=== PATIENT | female | born 1950 | race Caucasian/White ===

== ENCOUNTER 2016-11-14 12:23 | Emergency (ER) | payer SELFPAY ==
--- NOTE | 2016-11-14 14:09 | RAD ---
INDICATION: Cough since November 05. COMPARISON: November 26, 2011 TECHNIQUE: Dual energy PA and routine lateral views of the chest were obtained. REPORT: Early rarefaction of upper lung zone interstitial markings concerning for emphysema. No focal pulmonary lesion, alveolar consolidation, pleural effusion, pneumothorax. The heart, pulmonary vasculature, and mediastinal contours are unremarkable. Unremarkable osseous structures for age. IMPRESSION: Suggestion of early emphysema. Correlate with clinical assessment. No acute cardiopulmonary process evident.
[2016-11-14 14:47] VITALS: BP 136/67
--- NOTE | 2016-11-23 15:38 | UC ---
Chintan Leyva SooYoung, scribed for Autumn Roberson DO on 11/14/16 at 1239 . Respiratory Complaint HPI - HPI Summary HPI Summary: A 66 y/o F presents to [facility] with c/o productive cough onset approx 9 days ago. Aggravating factors: deep breaths. Associated sx: discrete mid-sternal CP, nasal drip, congestion, sore throat which resolved, malaise, dizziness (1-2 episodes per day), diaphoresis, palpitations. Denies: n/v/d, pain in neck, jaw and arm. Pt cleaned the chicken coop 9 days ago. Pt has tried a variety of homeopathic remedies (cinnamon and cloves, lemon and honey) with unsatisfying results. She took cold medicine with no relief, she believes the palpitations were related to the cold medicine. PMHx: arrhythmia. Pt has been around family members with recent colds. - History of Current Complaint Chief Complaint: UCRespiratory Stated Complaint: RESP ISSUE Time Seen by Provider: 11/14/16 12:26 Hx Obtained From: Patient Onset/Duration: Lasting Days, Still Present Timing: Constant Severity Initially: Moderate Severity Currently: Moderate Pain Intensity: 0 Pain Scale Used: 0-10 Numeric Character: Cough: Productive Aggravating Factors: Deep Breaths Associated Signs And Symptoms: Positive: Dizziness, Nasal Congestion - Allergies/Home Medications Allergies/Adverse Reactions: Allergies Allergy/AdvReac Type Severity Reaction Status Date / Time Neomycin Allergy Blisters Verified 11/14/16 12:30 PMH/Surg Hx/FS Hx/Imm Hx Previously Healthy: Yes Endocrine History Of: Denies: Diabetes, Thyroid Disease Cardiovascular History Of: Denies: Cardiac Disorders, Hypertension Respiratory History Of: Denies: COPD, Asthma GI/ History Of: Denies: Ulcer - Surgical History Surgical History: None Surgery Procedure, Year, and Place: hemorrhoidectomy - Family History Known Family History: Positive: Blood Disorder - clotting disorder Negative: Cardiac Disease, Hypertension, Diabetes - Social History Occupation: Unemployed - OTHER Lives: With Family Alcohol Use: None Substance Use Type: None Smoking Status (MU): Never Smoked Tobacco Review of Systems Constitutional: Negative Skin: Negative Eyes: Negative ENT: Sore Throat, Nasal Discharge, Other - pos: congestion Respiratory: Negative Cardiovascular: Palpitations, Chest Pain Gastrointestinal: Negative Genitourinary: Negative Motor: Negative Neurovascular: Negative Musculoskeletal: Other: - pos: malaise Neurological: Other - pos: dizziness Psychological: Negative All Other Systems Reviewed And Are Negative: Yes Physical Exam Triage Information Reviewed: Yes Appearance: Well-Appearing, No Pain Distress, Well-Nourished Vital Signs: Initial Vital Signs Temp 98.7 F 11/14/16 12:30 Pulse 84 11/14/16 12:30 Resp 16 11/14/16 12:30 BP 113/76 11/14/16 12:30 Pulse Ox 98 11/14/16 12:30 Vital Signs Reviewed: Yes Eyes: Positive: Conjunctiva Clear. Negative: Discharge ENT: Positive: Hearing grossly normal. Negative: Muffled/hoarse voice Neck exam: Normal Neck: Positive: Supple Respiratory: Positive: Lungs clear, Normal breath sounds, No respiratory distress, No accessory muscle use, Expiration - prolonged expiration Cardiovascular: Positive: RRR, No Murmur Musculoskeletal Exam: Normal Neurological: Positive: Alert, Muscle Tone Normal Psychological: Positive: Age Appropriate Behavior Skin Exam: Normal, Other - pos: warm, dry, nml color UC Diagnostic Evaluation - Laboratory O2 Sat by Pulse Oximetry: 98 - Radiology Xray Interpretation: Positive (See Comments) - CXR IMPRESSION: Suggestion of early emphysema. Correlate with clinical assessment. No acute cardiopulmonary process evident. Radiology Interpretation Completed By: Radiologist Respiratory Course/Dx - Course Course Of Treatment: Normal BP reading and no follow-up instructions required. - Differential Dx/Diagnosis Differential Diagnosis/HQI/PQRI: Bronchitis, Lower Resp Infection, Pulmonary Embolism, Sinusitis, Other - cva Provider Diagnoses: near syncope, dizzy, sinusitis, ama Discharge - Discharge Plan Condition: Stable Disposition: AGAINST MEDICAL ADVICE Prescriptions: Amoxicillin/Clavulanate TAB* [Augmentin TAB 875*] 875 mg PO BID #20 tab Benzonatate CAP* [Tessalon 100 MG CAP*] 100 mg PO TID #30 cap Fluconazole [Diflucan] 150 mg PO ONCE #2 tab guaiFENesin ER TAB [Mucinex*] 600 mg PO BID PRN #1 box PRN Reason: Cough predniSONE TAB* [Deltasone TAB*] 40 mg PO DAILY #10 tab Patient Education Materials: Acute Bronchitis (ED), Near Syncope (ED), Lightheadedness (ED) Referrals: [facility] [place] [facility] [Outside] No Primary Care Phys,NOPCP [Primary Care Provider] - Additional Instructions: YOU ARE LEAVING AGAINST MEDICAL ADVISE. WE HAVE RECOMMENDED TRANSFER TO THE ED FOR THOROUGH EVALUATION OF YOUR CHEST DISCOMFORT, DIZZINESS AND NEAR SYNCOPE. YOU HAVE REFUSED. YOUR RISKS INCLUDE DAMAGE TO THE HEART, CARDIAC ARRHYTHMIA, CARDIAC ARREST AND . IF YOU CHANGE YOUR MIND, YOU CAN STILL GO TO THE ED AT ANY TIME. TRY USING THE NETTI POT IN THE MORNINGS DISCUSSED. YOU MUST ALWAYS USE CLEAN WATER. CORTICOSTEROID MEDICATION: You have been given a medicine of the cortisone class. This medication is used to control inflammation or allergy. It is usually only given for a short period of time, until the acute process subsides. There are usually no side effects from short-term use of cortisone-like medications. Some persons feel an increased sense of well-being and are not sleepy at bedtime. Long-term use of cortisone medications is best avoided, unless required for a severe condition. If your condition does not remit, or relapses after the course of corticosteroid medication, you should consult your physician. Contact the physician if you develop lightheadedness, black or tarry stools , swelling of the legs, or significant rapid change in weight. EXPECTORANT MEDICATION: An expectorant medicine has been prescribed. This type of drug makes mucous thinner, helping the sinuses, nose, and bronchial tubes to remain free of pus and mucous. Expectorants make a cough less severe and more comfortable, and help infected sinuses drain. In general, antihistamines defeat the purpose of the expectorant by making mucous thicker. They should be avoided unless specifically recommended by your physician. TESSALON PERLES: You have received a prescription for Tessalon Perles (benzonatate). This is a non-narcotic medicine for relief of cough. It usually works in about 15- 20 minutes and lasts around four hours. Tessalon Perles should be swallowed. They should not be chewed or dissolved in the mouth (this can produce temporary numbing of the mouth and choking can occur). If you develop any adverse effects such as wheezing, shortness of breath, hives, rash, itching, or lightheadedness, please return at once. AUGMENTIN: Augmentin is a mixture of amoxicillin and clavulanate. Amoxicillin is a member of the penicillin family. It covers the germs likely to cause ear, bronchial, and urinary infections better than plain penicillin. The addition of clavulanate allows it to cover staph infections of the skin, as well as resistant cases of ear and sinus infections. Your physician has chosen Augmentin for you because of the special nature of your situation. Augmentin is best taken with meals. Nausea after taking the medication is rare, but can occur. Diarrhea can occur, particularly in small children. Vaginal yeast infections, and oral thrush in infants are also common. Contact your physician if these problems occur. Allergy to penicillins is common. If you have had an allergic reaction to any drug of the penicillin family, you should never take any other penicillin. Notify your doctor at once if you develop hives, shortness of breath, swelling, or faintness. ANY TIME YOU TAKE AN ANTIBIOTIC, IT IS IMPORTANT TO REPLENISH THE BODY'S BALANCE OF "GOOD" BACTERIA BY EATING HIGH QUALITY CULTURED FOOD SUCH YOGURT, SAURKRAUT OR EDISON CHI AND/OR TAKING A PROBIOTIC SUPPLEMENT. FLUCONAZOLE: Fluconazole (Diflucan) is an antifungal drug. It is useful for serious fungal infections, but is also excellent for oral or vaginal yeast infections. Diflucan interacts with some medicines. This is a concern if you are taking anticoagulants (such as Coumadin), phenytoin (Dilantin), cyclosporin, or oral hypoglycemics (such as tolbutamide, Orinase, glipizide, Glucotrol, glyburide, DiaBeta, Glynase, and Micronase). Be sure the doctor knows if you are taking one of these medicines. We don't know how Diflucan affects . If you are planning to become , discuss this with your doctor. Diflucan has few side effects. Minor side effects may include nausea, headache, or diarrhea. Call the doctor if you develop a skin rash, shortness of breath, or other new symptoms. FOLLOW-UP CARE: You should establish with a private physician for follow-up care. If you are unable to get a timely appointment, or if you are worsening, call us or return for re-evaluation. An additional resource available to assist in finding the appropriate physician for your health care needs is the Physician Referral Center. You may contact them by calling [phone]. The documentation as recorded by the scribe, VanDeMark,SooYoung accurately reflects the service I personally performed and the decisions made by me, Autumn Roberson DO.
== END 2016-11-14 15:00 | disposition left against medical advice (07) ==
LOC: UCEAST 12:23
DX: R55 Syncope and collapse (principal); R42 Dizziness and giddiness; J32.9 Chronic sinusitis, unspecified; Z88.1 Allergy status to other antibiotic agents
CPT/HCPCS: 71020; 99212; G0463

== ENCOUNTER 2016-12-11 11:39 | Emergency (ER) | payer SELFPAY ==
[2016-12-11] MEDS ORDERED: Aspirin Low Dose CHEW TAB* 81 MG PO ONE (12:32)
[2016-12-11 13:11] LABS: Hematocrit 39 % (35-47); Hemoglobin 13.1 g/dl (12.0-16.0); Mean Corpuscular HGB Conc 34 g/dl (31-36); Mean Corpuscular Hemoglobin 30 pg (27-31); Mean Corpuscular Volume 89 fL (80-97); Mean Platelet Volume 8 um3 (7.4-10.4); Red Blood Count 4.32 10^6/ul (4.0-5.4); Red Cell Distribution Width 14 % (10.5-15); White Blood Count 6.2 10^3/ul (3.5-10.8)
[2016-12-11 13:28] LABS: Albumin 4.2 g/dL (3.2-5.2); BUN/Creatinine Ratio 17.9 (8-20); Calcium 9.2 mg/dL (8.6-10.3); EGFR African American 112.6 (>60); EGFR Non-African American 87.5 (>60); Globulin 2.6 g/dL (2-4); Magnesium 2.1 mg/dL (1.9-2.7); Potassium 3.8 mmol/L (3.5-5.0); Total Bilirubin 0.5 mg/dL (0.2-1.0); Total Protein 6.8 g/dL (6.4-8.9)
[2016-12-11 13:31] LABS: Troponin I 0.01 ng/mL (<0.04)
--- NOTE | 2016-12-11 13:37 | RAD ---
INDICATION: Chest pain. COMPARISON: Comparison is made with prior chest x-ray study from November 14, 2016. TECHNIQUE: A portable view of the chest was obtained. FINDINGS: Cardiac and mediastinal contours appear to be within normal limits. The lungs are clear. No pleural effusion is seen. IMPRESSION: NO EVIDENCE FOR ACUTE DISEASE.
[2016-12-11 13:54] LABS: T4 6.84 mcg/mL (6.09-12.23)
[2016-12-11 13:55] LABS: TSH (Thyroid Stimulating Horm) 3.16 mcIU/mL (0.34-5.60)
[2016-12-11 15:53] LABS: Urine Bilirubin Negative (Negative); Urine Glucose Negative (Negative); Urine Nitrite Negative (Negative)
[2016-12-11 16:19] VITALS: BP 114/66
[2016-12-11] MEDS ORDERED: Albuterol HFA INHALER* 8 gm MDI INH PRN (16:31)
--- NOTE | 2016-12-12 17:59 | ED ---
Gail Leyva Edward, scribed for Jermain Snider MD on 12/11/16 at 1633 . HPI Chest Pain - HPI Summary HPI Summary: 66 y/o female presents to ED with CP characterized as chest tightness. Patient experienced a cough and chest tightness yesterday while digging in her backyard. CP initially started last month after patient cleaned her chicken coop , which brought on coughing and a bad cold that "stayed in her chest." She was treated at [facility] and symptoms resolved. Associated sx: "hot flashes", lightheadedness, and constipation. Denies SOB, N/V, and diarrhea. - History of Current Complaint Chief Complaint: EDChestPainROMI Time Seen by Provider: 12/11/16 12:31 Hx Obtained From: Patient Onset/Duration: Started Days Ago - Chest pain and cough got worse yesterday. Had similar episode last month but was resolved, Still Present Timing: Constant Initial Severity: Mild Current Severity: Mild Pain Intensity: 3 Pain Scale Used: 0-10 Numeric Character: Tightness, Other: - Can "feel heart for the first time" Associated Signs and Symptoms: Positive: Chest Pain - Chest tightness, Cough, Other: - No diarrhea. Positive constipation. Negative: Shortness of Breath, Nausea, Vomiting - Allergy/Home Medications Allergies/Adverse Reactions: Allergies Allergy/AdvReac Type Severity Reaction Status Date / Time Neomycin Allergy Blisters Verified 11/14/16 12:30 PMH/Surg Hx/FS Hx/Imm Hx Previously Healthy: No Endocrine/Hematology History: Denies: Hx Diabetes, Hx Thyroid Disease Cardiovascular History: Denies: Hx Hypertension Respiratory History: Denies: Hx Asthma, Hx Chronic Obstructive Pulmonary Disease (COPD) GI History: Denies: Hx Ulcer - Surgical History Surgery Procedure, Year, and Place: hemorrhoidectomy Infectious Disease History: No Infectious Disease History: Denies: Hx Hepatitis, Hx Human Immunodeficiency Virus (HIV), History Other Infectious Disease, Traveled Outside the [place] in Last 30 Days - Family History Known Family History: Positive: Blood Disorder - clotting disorder Negative: Cardiac Disease, Hypertension, Diabetes - Social History Occupation: Unemployed Lives: With Family Alcohol Use: None Substance Use Type: Reports: None Hx Tobacco Use: No Smoking Status (MU): Never Smoked Tobacco Review of Systems Constitutional: Negative Eyes: Negative ENT: Negative Positive: Chest Pain - Chest tightness Positive: Cough. Negative: Shortness Of Breath Negative: Vomiting, Diarrhea, Nausea Genitourinary: Negative Musculoskeletal: Negative Skin: Negative Neurological: Other - Lightheaded Psychological: Normal All Other Systems Reviewed And Are Negative: Yes Physical Exam - Summary Physical Exam Summary: VITAL SIGNS:~Reviewed. GENERAL:~ Patient is a well-developed and nourished female who is lying comfortable in the stretcher.~ Patient is not in any acute respiratory distress. HEAD AND FACE:~No signs of trauma.~ No ecchymosis, hematomas or skull depressions. No sinus tenderness. EYES:~PERRLA, EOMI x 2, No injected conjunctiva, no nystagmus. EARS:~Hearing grossly intact. Ear canals and tympanic membranes are within normal limits. MOUTH:~Oropharynx within normal limits. NECK:~Supple, trachea is midline, no adenopathy, no JVD, no carotid bruit, no c- spine tenderness, neck with full ROM. CHEST:~Symmetric, no tenderness at palpation LUNGS:~Clear to auscultation bilaterally. No wheezing or crackles. CVS:~Regular rate and rhythm, S1 and S2 present, no murmurs or gallops appreciated. ABDOMEN:~Soft, non-tender. No signs of distention. No rebound no guarding, and no masses palpated. Bowel sounds are normal. EXTREMITIES:~FROM in all major joints, no edema, no cyanosis or clubbing. NEURO:~Alert and oriented x 3. No acute neurological deficits. Speech is normal and follows commands. SKIN:~Dry and warm Triage Information Reviewed: Yes Vital Signs On Initial Exam: Initial Vitals Temp Pulse Resp BP Pulse Ox 97.3 F 87 20 138/69 98 12/11/16 11:44 12/11/16 11:44 12/11/16 11:44 12/11/16 11:44 12/11/16 11:44 Vital Signs Reviewed: Yes - Rafi Coma Scale Coma Scale Total: 15 Diagnostics - Vital Signs Vital Signs Temp Pulse Resp BP Pulse Ox 12/11/16 12:30 81 18 129/50 94 12/11/16 12:19 78 17 123/66 95 12/11/16 12:05 15 12/11/16 11:47 97.3 F 86 20 138/69 97 12/11/16 11:44 97.3 F 87 20 138/69 98 - Laboratory Lab Results: Lab Results 12/11/16 12/11/16 12/11/16 Range/Units 12:55 12:55 12:55 WBC 6.2 (3.5-10.8) 10^3/ul RBC 4.32 (4.0-5.4) 10^6/ul Hgb 13.1 (12.0-16.0) g/dl Hct 39 (35-47) % MCV 89 (80-97) fL MCH 30 (27-31) pg MCHC 34 (31-36) g/dl RDW 14 (10.5-15) % Plt Count 262 (150-450) 10^3/ul MPV 8 (7.4-10.4) um3 Neut % (Auto) 48.7 (38-83) % Lymph % (Auto) 38.2 (25-47) % Spencer % (Auto) 8.3 (1-9) % Eos % (Auto) 3.6 (0-6) % Baso % (Auto) 1.2 (0-2) % Absolute Neuts (auto) 3.0 (1.5-7.7) 10^3/ul Absolute Lymphs (auto) 2.4 (1.0-4.8) 10^3/ul Absolute Monos (auto) 0.5 (0-0.8) 10^3/ul Absolute Eos (auto) 0.2 (0-0.6) 10^3/ul Absolute Basos (auto) 0.1 (0-0.2) 10^3/ul Absolute Nucleated RBC 0 10^3/ul Nucleated RBC % 0 Sodium 137 (133-145) mmol/L Potassium 3.8 (3.5-5.0) mmol/L Chloride 104 (101-111) mmol/L Carbon Dioxide 25 (22-32) mmol/L Anion Gap 8 (2-11) mmol/L BUN 12 (6-24) mg/dL Creatinine 0.67 (0.51-0.95) mg/dL Est GFR ( Amer) 112.6 (>60) Est GFR (Non-Af Amer) 87.5 (>60) BUN/Creatinine Ratio 17.9 (8-20) Glucose 105 H (70-100) mg/dL Lactic Acid 1.1 (0.5-2.0) mmol/L Calcium 9.2 (8.6-10.3) mg/dL Magnesium 2.1 (1.9-2.7) mg/dL Total Bilirubin 0.50 (0.2-1.0) mg/dL AST 30 (13-39) U/L ALT 19 (7-52) U/L Alkaline Phosphatase 66 (34-104) U/L Total Creatine Kinase 79 (10-223) U/L CK-MB (CK-2) 1.2 (0.6-6.3) ng/mL Troponin I 0.01 (<0.04) ng/mL B-Natriuretic Peptide ( - 100) pg/mL Total Protein 6.8 (6.4-8.9) g/dL Albumin 4.2 (3.2-5.2) g/dL Globulin 2.6 (2-4) g/dL Albumin/Globulin Ratio 1.6 (1-3) TSH 3.16 (0.34-5.60) mcIU/mL Thyroxine (T4) 6.84 (6.09-12.23) mcg/mL Urine Color Urine Appearance Urine pH (5-9) Ur Specific [place] (1.010-1.030) Urine Protein (Negative) Urine Ketones (Negative) Urine Blood (Negative) Urine Nitrate (Negative) Urine Bilirubin (Negative) Urine Urobilinogen (Negative) Ur Leukocyte Esterase (Negative) Urine Glucose (Negative) 12/11/16 12/11/16 12/11/16 Range/Units 12:55 15:44 15:44 WBC (3.5-10.8) 10^3/ul RBC (4.0-5.4) 10^6/ul Hgb (12.0-16.0) g/dl Hct (35-47) % MCV (80-97) fL MCH (27-31) pg MCHC (31-36) g/dl RDW (10.5-15) % Plt Count (150-450) 10^3/ul MPV (7.4-10.4) um3 Neut % (Auto) (38-83) % Lymph % (Auto) (25-47) % Spencer % (Auto) (1-9) % Eos % (Auto) (0-6) % Baso % (Auto) (0-2) % Absolute Neuts (auto) (1.5-7.7) 10^3/ul Absolute Lymphs (auto) (1.0-4.8) 10^3/ul Absolute Monos (auto) (0-0.8) 10^3/ul Absolute Eos (auto) (0-0.6) 10^3/ul Absolute Basos (auto) (0-0.2) 10^3/ul Absolute Nucleated RBC 10^3/ul Nucleated RBC % Sodium (133-145) mmol/L Potassium (3.5-5.0) mmol/L Chloride (101-111) mmol/L Carbon Dioxide (22-32) mmol/L Anion Gap (2-11) mmol/L BUN (6-24) mg/dL Creatinine (0.51-0.95) mg/dL Est GFR ( Amer) (>60) Est GFR (Non-Af Amer) (>60) BUN/Creatinine Ratio (8-20) Glucose (70-100) mg/dL Lactic Acid (0.5-2.0) mmol/L Calcium (8.6-10.3) mg/dL Magnesium (1.9-2.7) mg/dL Total Bilirubin (0.2-1.0) mg/dL AST (13-39) U/L ALT (7-52) U/L Alkaline Phosphatase (34-104) U/L Total Creatine Kinase (10-223) U/L CK-MB (CK-2) (0.6-6.3) ng/mL Troponin I 0.00 (<0.04) ng/mL B-Natriuretic Peptide 14 ( - 100) pg/mL Total Protein (6.4-8.9) g/dL Albumin (3.2-5.2) g/dL Globulin (2-4) g/dL Albumin/Globulin Ratio (1-3) TSH (0.34-5.60) mcIU/mL Thyroxine (T4) (6.09-12.23) mcg/mL Urine Color Yellow Urine Appearance Clear Urine pH 5.0 (5-9) Ur Specific [place] 1.013 (1.010-1.030) Urine Protein Negative (Negative) Urine Ketones Trace H (Negative) Urine Blood Negative (Negative) Urine Nitrate Negative (Negative) Urine Bilirubin Negative (Negative) Urine Urobilinogen Negative (Negative) Ur Leukocyte Esterase Negative (Negative) Urine Glucose Negative (Negative) Result Diagrams: 12/11/16 12:55 12/11/16 12:55 Lab Statement: Any lab studies that have been ordered have been reviewed, and results considered in the medical decision making process. - Radiology CHEST XRAY Xray Interpretation: No Acute Changes - No evidence for acute disease Radiology Interpretation Completed By: Radiologist - EKG 1 EKG Interpretation: 11:51 - SR @ 89 bpm w/ PVCs. Chest Pain Course/Dx - Course Assessment/Plan: 66 y/o female presents to ED with CP characterized as chest tightness. Patient experienced a cough and chest tightness yesterday while digging in her backyard. CP initially started last month after patient cleaned her chicken coop, which brought on coughing and a bad cold that "stayed in her chest." She was treated at [facility] and symptoms resolved. Associated sx: hot flashes, lightheadedness, and constipation. Denies SOB, N/V, and diarrhea. Test result WNL. Troponin 0.00, 4 hours later Trop 2 0.00. UA is negative for UTI. CXR negative for acute pathology. EKG shows no acute changes. In the ED course, the patient remained comfortable with no complaints. She has an occasional dry cough, probably induced by dust from her chicken coop. Therefore , 1 dose of albuterol inhaler, was administered and sx improved. Therefore she was discharged with follow up with her PCP. No suspicion for PE and ACS. Patient is not hypoxic and not tachycardic. She is hemodynamically stable and AxOx3. - Chest Pain Differential Diagnosis/HQI/PQRI: ACS, Chest Wall, GI Disease, Lower Respiratory Infection - Diagnoses Provider Diagnoses: Chest pain, Cough Discharge - Discharge Plan Condition: Stable Disposition: HOME Patient Education Materials: Chest Pain (ED), Chronic Cough (ED) Referrals: [facility] [place] [facility] REFERR[facility] [Outside] - 3 Days (Follow up in 2-3 days please) The documentation as recorded by the Gail robbins Edward accurately reflects the service I personally performed and the decisions made by , Jermain Snider MD.
== END 2016-12-11 16:56 | disposition home or self-care (01) ==
LOC: ED 11:39
DX: R07.89 Other chest pain (principal); R05 Cough; K59.00 Constipation, unspecified
CPT/HCPCS: 36415; 71010; 80053; 81003; 82550; 82553; 83605; 83735; 83880; 84436; 84443; 84484; 85025; 93005; 99283; A9270-GY

== ENCOUNTER 2017-08-13 10:33 | Emergency (ER) | payer MEDICARE, MEDICAID ==
--- NOTE | 2017-08-13 12:30 | UC ---
Back Pain HPI - HPI Summary HPI Summary: reached out of bed on 07/31 fell and landed on coccyx-has continued coccyx pain- - History of Current Complaint Chief Complaint: UCBackPain Stated Complaint: TAIL BONE INJURY Time Seen by Provider: 08/13/17 12:20 Hx Obtained From: Patient Hx Last Menstrual Period: post ?: No Onset/Duration: Sudden Onset, Lasting Weeks - 2, Still Present Timing: Constant Severity Initially: Moderate Severity Currently: Moderate Pain Intensity: 8 Pain Scale Used: 0-10 Numeric Back Pain: Is Discrete @ - coccyx Character: Aching Aggravating Factor(s): Nothing Alleviating Factor(s): Rest, OTC Meds Associated Signs And Symptoms: Positive: Negative - Allergies/Home Medications Allergies/Adverse Reactions: Allergies Allergy/AdvReac Type Severity Reaction Status Date / Time MS Neomycin [Neomycin] Allergy Blisters Verified 08/13/17 11:12 PMH/Surg Hx/FS Hx/Imm Hx Previously Healthy: Yes - Surgical History Surgical History: Yes Surgery Procedure, Year, and Place: hemorrhoidectomy. adnomiosis at [facility] - Family History Known Family History: Positive: Blood Disorder - clotting disorder Negative: Cardiac Disease, Hypertension, Diabetes - Social History Occupation: Retired Lives: With Family Alcohol Use: None Substance Use Type: None Smoking Status (MU): Never Smoked Tobacco Review of Systems Constitutional: Negative Skin: Negative Eyes: Negative ENT: Negative Respiratory: Negative Cardiovascular: Negative Gastrointestinal: Negative Genitourinary: Negative Motor: Negative Neurovascular: Negative Musculoskeletal: Arthralgia - coccyx Neurological: Negative Psychological: Negative Is Patient Immunocompromised?: No All Other Systems Reviewed And Are Negative: Yes Physical Exam Triage Information Reviewed: Yes Appearance: Well-Appearing, No Pain Distress, Well-Nourished Vital Signs: Initial Vital Signs Temp 98.7 F 08/13/17 11:05 Pulse 73 08/13/17 11:05 Resp 16 08/13/17 11:05 BP 130/63 08/13/17 11:05 Pulse Ox 97 08/13/17 11:05 Vital Signs Reviewed: Yes Eye Exam: Normal Eyes: Positive: Conjunctiva Clear ENT Exam: Normal ENT: Positive: Normal ENT inspection, Hearing grossly normal. Negative: Nasal congestion, Tonsillar swelling, Tonsillar exudate, Trismus, Muffled voice, Hoarse voice Dental Exam: Normal Neck exam: Normal Neck: Positive: Supple, Nontender Respiratory Exam: Normal Respiratory: Positive: Chest non-tender, No respiratory distress, No accessory muscle use Cardiovascular Exam: Normal Cardiovascular: Positive: RRR, Pulses Normal, Brisk Capillary Refill Musculoskeletal Exam: Normal Musculoskeletal: Positive: Strength Intact, ROM Intact, No Edema Neurological Exam: Normal Neurological: Positive: Alert, Muscle Tone Normal Psychological Exam: Normal Skin Exam: Normal Diagnostics - Radiology No standard instances Xray Interpretation: No Acute Changes Radiology Interpretation Completed By: Radiologist Back Pain Course/Dx - Course Course Of Treatment: ice, cushioned seat follow with pcp - Differential Dx/Diagnosis Provider Diagnoses: coccyx bruise Discharge - Discharge Plan Condition: Stable Disposition: HOME Patient Education Materials: Ibuprofen (By mouth), Contusion in Adults (ED) Referrals: [facility] [place]] - If Needed
--- NOTE | 2017-08-13 13:18 | RAD ---
Indication: Sacrum and coccyx pain post fall one week ago. Comparison: No relevant prior exams available on the [facility] [place] [facility] [place] for comparison. Technique: AP and lateral views sacrum and coccyx. Report: Bowel contents partially obscures the sacrum and coccyx on the AP view. No fracture or malalignment evident. Diffuse facet joint osteoarthritis. Partial calcification of the L5-S1 disc space. IMPRESSION: No radiographic evidence for sacral or coccygeal fracture.
[2017-08-13 13:24] VITALS: BP 115/67
== END 2017-08-13 13:43 | disposition home or self-care (01) ==
LOC: UCEAST 10:33
DX: S30.0XXA Contusion of lower back and pelvis, initial encounter (principal); W06.XXXA Fall from bed, initial encounter; Y93.9 Activity, unspecified; Y92.003 Bedroom of unspecified non-institutional (private) residence as the place of occurrence of the external cause
CPT/HCPCS: 72220; 99211; G0463

== ENCOUNTER 2018-09-07 10:46 | Emergency (ER) | payer MEDICAID, MEDICARE ==
--- NOTE | 2018-09-07 11:16 | ED ---
Lower Extremity - HPI Summary HPI Summary: Patient is a 67 y/o female who presents to the ED c/o ankle pain. She slipped on ice and fell around 10:00 this morning. As per , patient twisted her right ankle as she fell down. Patient landed on her buttocks, and denies any head injury. She denies any hip pain, dizziness, or syncope. Patient reports she initially had right knee pain that has now resolved. Patient rates her pain as a 10/10 in severity. She is not able to bear weight. Nurses note states positive deformity to the right ankle. - History of Current Complaint Chief Complaint: EDExtremityLower Stated Complaint: INJURED RIGHT ANKLE PER PT Time Seen by Provider: 09/07/18 10:55 Hx Obtained From: Patient, Family/[employer] - Hx Last Menstrual Period: post Mechanism Of Injury: Fall From A Standing Position - slipped on ice, twisted Onset of Pain: Immediate Onset/Duration: Still Present Severity Currently: Severe Pain Intensity: 10 Pain Scale Used: 0-10 Numeric Timing: Constant, Lasting Hours - 10:00 this morning Location: Is Discrete @ - right ankle Associated Signs And Symptoms: Positive: Knee Pain - right - resolved. Negative : Syncope Able to Bear Weight: No - Allergies/Home Medications Allergies/Adverse Reactions: Allergies Allergy/AdvReac Type Severity Reaction Status Date / Time neomycin Allergy Blisters Verified 09/07/18 11:39 Home Medications: Home Medications Magnesium Citrate 100 mg PO DAILY PRN 09/07/18 [History Confirmed 09/07/18] PMH/Surg Hx/FS Hx/Imm Hx Endocrine/Hematology History: Denies: Hx Diabetes, Hx Thyroid Disease Cardiovascular History: Denies: Hx Hypertension Respiratory History: Denies: Hx Asthma, Hx Chronic Obstructive Pulmonary Disease (COPD) GI History: Denies: Hx Ulcer Musculoskeletal History: Reports: Hx of Fracture(s) - left ankle - Surgical History Surgery Procedure, Year, and Place: hemorrhoidectomy. adnomiosis at [facility] Infectious Disease History: No Infectious Disease History: Denies: Hx Hepatitis, Hx Human Immunodeficiency Virus (HIV), History Other Infectious Disease, Traveled Outside the [place] in Last 30 Days - Family History Known Family History: Positive: Blood Disorder - clotting disorder Negative: Cardiac Disease, Hypertension, Diabetes - Social History Alcohol Use: None Hx Substance Use: No Substance Use Type: Reports: None Hx Tobacco Use: No Smoking Status (MU): Never Smoked Tobacco Review of Systems Positive: Arthralgia - right ankle, Other - right knee pain - resolved, NEGATIVE : hip pain Neurological: Other - NEGATIVE: dizziness Negative: Syncope All Other Systems Reviewed And Are Negative: Yes Physical Exam - Summary Physical Exam Summary: Constitutional: Well-developed, Well-nourished, Alert. (-) Distressed Skin: Warm, Dry, Mild ecchymosis over right lateral malleolus HENT: Normocephalic; Atraumatic Eyes: Conjunctiva normal Neck: Musculoskeletal ROM normal neck. (-) JVD, (-) Stridor, (-) Tracheal deviation Cardio: Rhythm regular, rate normal, Heart sounds normal; Intact distal pulses; The pedal pulses are 2+ and symmetric. Radial pulses are 2+ and symmetric. (-) Murmur Pulmonary/Chest wall: Effort normal. (-) Respiratory distress, (-) Wheezes, (-) Rales Abd: Soft, (-) tenderness, (-) Distension, (-) Guarding, (-) Rebound Musculoskeletal: (+) Tenderness to palpation of right lateral malleolus, tenderness continues as palpating the proximal fibula, (+) Edema over right lateral malleolus, NV intact, Able to move toes Lymph: (-) Cervical adenopathy Neuro: Alert, Oriented x3 Psych: Mood and affect Normal Triage Information Reviewed: Yes Vital Signs On Initial Exam: Initial Vitals Temp Pulse Resp BP Pulse Ox 99 F 71 20 140/78 99 09/07/18 10:48 09/07/18 10:48 09/07/18 10:48 09/07/18 10:48 09/07/18 10:48 Vital Signs Reviewed: Yes Procedures - Splinting Right Lower Extremity Location: Right ankle - given 4 mg morphine and .5 mg Dilaudid Splint: coaptation Pre-Proc Neuro Vasc Exam: normal Post-Proc Neuro Vasc Exam: normal - tolerated procedure well with no complications Diagnostics - Vital Signs Vital Signs Temp Pulse Resp BP Pulse Ox 09/07/18 10:48 99 F 71 20 140/78 99 - Laboratory Lab Statement: Any lab studies that have been ordered have been reviewed, and results considered in the medical decision making process. - Radiology Ankle XR Radiology Interpretation Completed By: Radiologist Summary of Radiographic Findings: Avitia type B fracture pattern at the lateral malleolus. ED physician reviewed radiology report. Re-Evaluation - Re-Evaluation First Eval Re-Evaluation Time: 12:23 Change: Improved Comment: Pt feels much better after pain medications. Applied a posterior splint. Lower Extremity Course/Dx - Course Course Of Treatment: Patient is a 67 y/o female who presents to the ED c/o ankle pain s/p fall this morning. A physical exam revealed tenderness to palpation of right lateral malleolus, tenderness continues as palpating the proximal fibula, edema over right lateral malleolus, NV intact, pedal pulses are 2+ and symmetric, able to move toes. An ankle XR revealed Avitia type B fracture pattern at the lateral malleolus. In the course patient was given Dilaudid and Morphine, which improved her pain. Applied a posterior and coaptation splint to the RLE. Final dx is ankle fracture. She is discharged and is to follow up with Dr. Gaitan. Patient is agreeable with this plan. - Diagnoses Provider Diagnoses: Ankle fracture - Physician Notifications Discussed Care Of Patient With: Heriberto Gaitan Time Discussed With Above Provider: 11:37 Instructed by Provider To: Have Pt Call For Appt. - Give pt a posterior and coaptation splint and discharge her. Have pt follow up as an outpatient. Discharge - Sign-Out/Discharge Documenting (check all that apply): Patient Departure - Discharge Patient Received Moderate/Deep Sedation with Procedure: No - Discharge Plan Condition: Improved Disposition: HOME Prescriptions: oxyCODONE/Acetamin 5/325 MG* [Percocet 5/325 TAB*] 1 tab PO Q6H PRN #15 tab MDD 4 PRN Reason: Pain Referrals: No Primary Care Phys,NOPCP [Primary Care Provider] - Heriberto Gaitan MD [Medical Doctor] - - Billing Disposition and Condition Condition: IMPROVED Disposition: Home - Attestation Statements Document Initiated by Scribe: Yes Documenting Scribe: Harriet Fagan Provider For Whom Patel is Documenting (Include Credential): Lola Shine MD Scribe Attestation: Harriet Leyva scribed for Lola Schultz MD on 09/07/18 at 2249. Scribe Documentation Reviewed: Yes Provider Attestation: The documentation as recorded by the Harriet robbinsri accurately reflects the service I personally performed and the decisions made by me, Lola Shine MD Status of Scribemily Document: Viewed
[2018-09-07] MEDS ORDERED: Morphine 10 MG/ML VIAL (1 ml) IM ONE (11:30)
[2018-09-07] MEDS: HYDROmorphone INJ1* 1 MG/ML SYRINGE IM ONE (12:29)
[2018-09-07 14:14] VITALS: BP 120/57
== END 2018-09-07 14:14 | disposition home or self-care (01) ==
LOC: ED 10:46
DX: S82.61XA Displaced fracture of lateral malleolus of right fibula, initial encounter for closed fracture (principal); W00.0XXA Fall on same level due to ice and snow, initial encounter; Y92.9 Unspecified place or not applicable; Z88.3 Allergy status to other anti-infective agents
CPT/HCPCS: 96372; 99282; J1170; J2270